=== PATIENT | male | born 1950 | race Native Hawaiian/Other Pacific Islander ===

== ENCOUNTER 2016-04-01 12:28 | Inpatient (IN) | payer MEDICAID ==
[~2016-04-01] VITALS: Ht 162.6 cm; Wt 117.0 kg
[2016-04-01] MEDS: Insulin LISPRO 300 Unit/3 mL Inj SUBQ SCH (00:13)
[2016-04-01 12:48] VITALS: BP 101/65; PULSE 94; RESP 26; O2SAT 90
[2016-04-01 13:36] LABS: EOSINOPHILS % (AUTO) 0 % (0-5); Mean Corpuscular Volume 76.8 fL (81-100); Platelet Count 190 bil/L (150-400)
--- NOTE | 2016-04-01 14:12 | DRSVH ---
PROCEDURE: X-RAY CHEST, TWO VIEWS ([id number]) INDICATIONS: SOB LL chest pain w/ deep breaths TECHNIQUE: 2 views of the chest were acquired. COMPARISON: None. FINDINGS: Surgical changes and devices: None. Lungs and pleura: No pleural effusions or pneumothorax. Lungs are abnormal with what likely is neurosurgical nurse zayda elevation of the right hemidiaphragm and there is alveolar infiltration at the left lower lobe po steriorly.. Mediastinum: Mediastinal contours are normal. Heart size is normal. Bones and chest wall: No suspicious bony abnormalities. Soft tissues appear unremarkable. IMPRESSION: Left lower lobe pneumonia, chronic appearing mild elevation of the right hemidiaphragm. Dictated by: Hal Cornejo M.D. on 04/01/2016 at 14:10 Approved by: Hal Cornejo M.D. on 04/01/2016 at 14:10
[2016-04-01 14:32] LABS: Magnesium 1.7 mg/dL (1.6-2.6)
[2016-04-01 15:22] LABS: BASOPHILS % (AUTO) 0 % (0-3); MONOCYTES % (AUTO) 4 % (4-12); NEUTROPHILS % (AUTO) 93 % (40-74)
--- NOTE | 2016-04-01 15:58 | ED.REPORT ---
HPI-General Illness Date of Service Apr 01, 2016 ED Provider: Dr. Ayon Pt is a 65 year old male with DM problems, presenting to the ED complaining of a cough and SOB onset 4 days ago. The family also reports dizziness, left lower chest pain when coughing, body aches, diarrhea, decreased appetite and weakness. Denies vomiting. 1000mg metformin twice a day is the pt's only medication. [place] speaker, family interperets. Nursing Notes Stated Complaint: DIZZY/SOB Chief Complaint: Respiratory Distress Nursing Notes Reviewed: Yes Allergies: Coded Allergies: aspirin (Verified Allergy, Severe, 04/01/16) swelling around the eyes General Time Seen by MD: 15:58 Chief Complaint Cough, Other (SOB) Hx Obtained From: Patient, Daughter Arrived By: Walk-in Sudden in Onset?: No Onset Occurred: 4 days ago Symptom Duration: Since onset Quality: Painful Severity: Current: Mild Severity: Maximum: Moderate Recent Healthcare: No recent doctor visit, No recent hospitalization Similar Sx Previous: No Past Medical History Past Medical History Notes: [facility] [place] Past Medical History DM Reported admitted to [facility] last year for an eye problem. Past Surgical History denies Smoking History Never Smoker Social History Alcohol Use: Denies alcohol use Ambulatory Status Wheelchair Review of Systems Full Review of Systems Respiratory: Reports: Non-productive cough, Shortness of breath Cardiovascular: Reports: Chest pain GI: Reports: Diarrhea, Denies: Nausea, Vomiting Neurologic: Reports: Dizziness, Weakness Complete sys rev & neg: except as marked. Physical Exam Vital Signs Vital Signs Date Time Temp Pulse Resp B/P Pulse Ox O2 Delivery O2 Flow Rate FiO2 04/01/16 19:22 91 21 137/79 88 Room Air 04/01/16 18:21 92 23 92 Nasal Cannula 1 04/01/16 17:19 93 26 113/61 99 Nasal Cannula 4 04/01/16 12:48 37.1 94 26 101/65 90 Initial VS: Reviewed Neck: Full range of motion Cardiovascular: Regular rate & rhythm, Heart sounds normal, Intact distal pulses Abdomen / GI: No distention Back: No CVA tenderness Skin: Warm, Dry Neurologic: Alert, Oriented, Nonfocal Psychiatric: Mood/affect normal, Behavior normal, Normal thought content General/Constitutional: Cooperative Somnolent but arousable. ENT: Airway patent, Pharynx NL Mouth: Positive: Mucous membranes dry Respiratory / Chest: Breath sounds = bilat Poor air movement. Diffuse wheeze. Interpretation & Diagnostics Interpretation & Diagnostics: ABG: pH:7.325 pCO2:45 pO2:71.0 cHCO3:22.9 cBase:-2.7 Lab Results Interpretation Result Diagram: 04/01/16 1325 04/01/16 1325 Test 04/01/16 13:25 04/01/16 16:05 04/01/16 16:12 04/01/16 19:17 White Blood Count 33.8th/mm3 (3.8-10.1) Red Blood Count 5.69mil/mm3 (4.40-5.80) Hemoglobin 14.2g/dL (13.8-17.2) Hematocrit 43.7% (41.0-50.0) Mean Corpuscular Volume 76.8fL (81-100) Mean Corpuscular Hemoglobin 25.0pg (27.0-35.0) Mean Corpuscular Hemoglobin Concent 32.5% (32.0-37.0) Red Cell Distribution Width 13.3% (12.3-15.4) Platelet Count 190bil/L (150-400) Neutrophils (%) (Auto) 93% (40-74) Lymphocytes (%) (Auto) 3% (14-46) Monocytes (%) (Auto) 4% (4-12) Eosinophils (%) (Auto) 0% (0-5) Basophils (%) (Auto) 0% (0-3) Sodium Level 125mEq/L (134-144) Potassium Level 5.2mEq/L (3.5-5.2) Chloride Level 85mEq/L (97-108) Carbon Dioxide Level 20mmol/L (18-29) Blood Urea Nitrogen 75mg/dL (8-27) Creatinine 2.59mg/dL (0.76-1.27) Estimat Glomerular Filtration Rate 26mL/min (>59) Glucose Level 440mg/dL (60-99) Calcium Level 8.3mg/dL (8.5-10.1) Magnesium Level 1.7mg/dL (1.6-2.6) Total Bilirubin 1.3mg/dL (0.0-1.2) Aspartate Amino Transf (AST/SGOT) 35U/L (0-50) Alanine Aminotransferase (ALT/SGPT) 28U/L (0-44) Alkaline Phosphatase 176U/L (25-160) Total Protein 7.0g/dL (6.4-8.4) Albumin 2.9g/dL (3.4-5.0) Hold Urine Received (Received) Hold Purple Top Tube Received (Received) Hold Blue Top Tube Received (Received) Hold Red Top Tube Received (Received) Hold [place] Top Tube Received (Received) Lactic Acid Level 1.6mmol/L (0.4-2.0) X-Ray Chest Interpretation Chest Xray Interpretation: IMPRESSION: Left lower lobe pneumonia, chronic appearing mild elevation of the right hemidiaphragm. Dictated by: Hal Cornejo M.D. on 04/01/2016 at 14:10 View: AP & lat Interpretation / Wet Read by: Interpret - Radiologist Re-Eval/Medical Decision Med Decision/Clinical Course 65-year-old male presenting with a respiratory illness, left lower lobe infiltrate and marked leukocytosis. Lactate is also elevated. He is not hypotensive. His only mildly acidotic on arterial blood gas and does not appear to be retaining CO2 significantly. No diabetes which is presently uncontrolled and renal failure of unknown duration. He has been cultured up with her Rocephin and azithromycin and given 2 L of saline IV as well as a DuoNeb and Solu-Medrol 125 mg. Admitted to the hospitalist service. Time of Eval: 17:40 Patient Status: Condition improved Re-Evaluation/Progress Note: Discussed supplemental history with the pt's family. Consultation : Referral / Consult Name: Tobi Beebe MD Consulted With: Hospitalist Call Returned at: 18:12 Manager Agency: Will see patient, Agrees with plan, Accepts admit Counseled Regarding: Diagnosis, Lab results, Need for follow-up, When/why to return to ED Discharge & Departure Primary Impression: Pneumonia Pneumonia type: due to unspecified organism Laterality: left Lung location : lower lobe of lung Qualified Code: J18.9 - Pneumonia, unspecified organism Additional Impressions: Sepsis Sepsis type: sepsis due to unspecified organism Qualified Code: A41.9 - Sepsis, unspecified organism Type II diabetes mellitus, uncontrolled Renal failure Disposition: ADMITTED TO HOSPITAL Discharge Condition All VS Reviewed: Yes Condition: Improved Referrals: NOPCP (PCP) [facility] Scribe Attestation Portions of this note were transcribed by Bre Haywood. I, Dr. Ayon personally performed the history, physical exam and medical decision-making; I reviewed and confirmed the accuracy of the information in the transcribed note. Signed by : Stephanie Jean Baptiste, 04/01/16 and 1831. copies to: [facility] Zack Ayon MD Apr 01, 2016 15:58 BRE HAYWOOD Apr 01, 2016 16:19
[2016-04-01] MEDS ORDERED: 0.9% Sodium Chloride 1,000 ML IV ONE ×2 (16:00→17:25)
[2016-04-01] MEDS ORDERED: cefTRIAXone Inj 2,000 MG in IV Premix 1 EACH IV ONE (16:00)
[2016-04-01] MEDS ORDERED: Azithromycin Inj 500 MG in Dextrose 5% w/Vial Mate 250 ML IV ONE (16:00)
[2016-04-01 17:19] VITALS: BP 113/61; PULSE 93; RESP 26; O2SAT 99
[2016-04-01] MEDS ORDERED: MethylprednisoLONE Sodium Succinate 62.5 mg/mL 2 mL Inj IVPUSH ONE (17:45)
[2016-04-01] MEDS ORDERED: Albuterol-Ipratropium 3 mL Inhalation Solution NEB ONE (17:45)
--- NOTE | 2016-04-01 18:07 | ABG ---
DateTimeAnalyzed 18:02:00 -_ pH ____7.325 - 7.350 7.450 pCO2 ___45.3__ -mmHg 35.0 45.0 pO2 ___71.0__ -mmHg 69.0 116 HCO3- ___22.9__ -mmol/L 22.0 26.0 ABE ___-2.7__ -mmol/L -2.0 2.0 tHb ___12.9__ -g/dL O2Hb ___91.6__ -% COHb ____1.0__ -% MetHb ____1.0__ -% sO2 ___93.5__ -% 25.0 FIO2 ___24.0__ -% Drawn By [facility] - Date/Time Notified____ 18:07:00 -_ Oxygen Device 1 __CANNULA - Notified By [facility] - Notified Whom Slack, Don - B 747 -mmHg tO2 ___16.7__ -Vol% Erik test _Positive -
[2016-04-01 18:21] VITALS: PULSE 92; RESP 23; O2SAT 92
[2016-04-01] MEDS: 0.9% Sodium Chloride 1,000 ML IV SCH ×2 (18:28→19:23)
[2016-04-01] MEDS ORDERED: Alum-Mag Hydrox-Simeth 30 mL Suspension PO PRN (18:30)
[2016-04-01] MEDS ORDERED: Ondansetron 2 mg/mL 2 mL Inj IVPUSH PRN (18:30)
[2016-04-01 19:22] VITALS: BP 137/79; PULSE 91; RESP 21; O2SAT 88
[2016-04-01] MEDS ORDERED: Albuterol-Ipratropium 3 mL Inhalation Solution NEB PRN (19:25)
--- NOTE | 2016-04-01 19:29 | PCM.HPMED ---
Subjective Date of Service Apr 01, 2016 Primary Provider: Admitting Physician: Primary Care Physician: Rommel Attending Physician: Chief Complaint: Short of breath HISTORY was OBTAINED FROM and family members / [facility] NOTES History of present illness 65-year-old male with shortness of breath 3 days, associated yellow productive cough, fevers, left chest pain with cough. + sick contact. never inhaler use. no prior pneumonia. In the ER, status post Solu-Medrol Rocephin and azithromycin nebulizers Review of Systems - none of the following - wt change/ DUGAN / lightheaded / dizziness / n/v/diarrhea / bleeding/bruising / leg swelling / change in voiding / yeast infections / rash FAMILY HX grandson with URI prior to patient SOCIAL HX from [facility] originally, distant smoking MEDICATIONS metformin Past Medical/Surgical HX diabetes, eye injury Allergies Coded Allergies: aspirin (Verified Allergy, Severe, 04/01/16) swelling around the eyes PMH Social History Smoking Status: Never Smoker Exam Vital Signs Vital Sign - Last Date Time Temp Pulse Resp B/P Pulse Ox O2 Delivery O2 Flow Rate FiO2 04/01/16 19:22 91 21 137/79 88 Room Air 04/01/16 18:21 1 04/01/16 12:48 37.1 Lab and Diagnostics Labs Exam on admission off O2 90% NAD A and fatigued mood affect WNL NC/AT no icterus no injected eyes EOMI PERRL /no pharyngeal lesions/ no oral lesions / hearing intact Supple neck CTAB diminished w/ expiratory wheeze bilateral equal chest rise / no accessory muscle use / speaks in phrases to in [place] language / no rrw RRR S1 S2 / no mrg / 2+ radial pulses Soft nt nd + BS no hepatosplenomegaly mild bilatearl valentine edema no cyanosis no ecchymosis of lower extremities No rash / no jaundice JEROME incontinent of urine helping to change his clothes EKG QTC CXR left lower lobe pneumonia UA pending LFT bilirubin 1.3, elevated alkaline phosphatase Trop lactic acid mildly elevated procalcitonin pending Result Diagram: 04/01/16 1325 04/01/16 1325 Assessment & Plan Active issues and reason for admission Left lower lobe pneumonia, community-acquired, associated lactic acidosis/ leukocytosis/tachypnea/hypoxia -- Rocephin and azithromycin DuoNeb's, Solu-Medrol AK I, likely prerenal, associated hyponatremia in the setting of pneumonia -- IV fluid Elevated bilirubin, elevated alkaline phosphatase -- Pending repeat bilirubin -- Alkaline phosphatase likely nonspecific Chronic issues known prior to admission, present on admission Diabetes mellitus, hyperglycemic without ketoacidosis -- Sliding scale insulin and hold metformin Diet diabetic DVT prophylaxis lovenox heparin scd ambulate Code full Disposition inpatient status Assessment and plan were discussed with patient family. Tobi Beebe MD Apr 01, 2016 19:29
[2016-04-01] MEDS ORDERED: Glucose 40% Oral Gel 15 Gm Tube PO PRN (19:35)
[2016-04-01] MEDS: Albuterol 2.5 mg/3 mL Inhalation Solution NEB SCH ×2 (20:25→23:50)
[2016-04-01 20:26] VITALS: PULSE 85; RESP 20; O2SAT 90
[2016-04-01 23:50] VITALS: PULSE 61; RESP 20; O2SAT 95
[2016-04-02] VITALS (10 sets, daily range): BP systolic 106–129; BP diastolic 52–67; PULSE 72–96; RESP 16–24; O2SAT 88–97
[2016-04-02] MEDS: Heparin 5,000 Unit/mL Inj SUBQ SCH ×4 (00:14→23:36)
[2016-04-02] MEDS: MethylprednisoLONE Sodium Succinate 62.5 mg/mL 2 mL Inj IVPUSH SCH ×3 (00:14→18:05)
[2016-04-02 02:51] LABS: TROPONIN T 0.01 ug/L (0.0-0.011)
[2016-04-02] MEDS: Albuterol 2.5 mg/3 mL Inhalation Solution NEB SCH ×4 (03:59→21:21)
--- NOTE | 2016-04-02 05:28 | NUR ---
Mentation Pt somnolent throughout the shift. Arousable to voice and touch. Family states he "is ok." Frequent care checks performed.
[2016-04-02] MEDS: 0.9% Sodium Chloride 1,000 ML IV SCH ×6 (06:31→23:36)
--- NOTE | 2016-04-02 08:30 | PCM.PNMED ---
Subjective Date of Service Apr 02, 2016 Subjective No overnight events, vitals stable. No new complaints today. Denies any SOB. Although admits that he cannot take a full breath. Exam Vital Signs Vital Sign - Last Date Time Temp Pulse Resp B/P Pulse Ox O2 Delivery O2 Flow Rate FiO2 04/02/16 06:19 36.8 88 19 112/54 88 Room Air 04/02/16 00:15 1 Intake and Output 04/01/16 04/01/16 04/02/16 Cumulative From/Thru 15:00 23:00 07:00 04/01/16 12:48 - 04/02/16 06:53 Intake Total 2000 ml 1213 ml 3213 ml Output Total 350 ml 350 ml Balance 2000 ml 863 ml 2863 ml Intake Oral 260 ml 260 ml IV Total 2000 ml 953 ml 2953 ml Output Urine Total 350 ml 350 ml # Bowel Movements 0 0 Exam General: No acute distress HEENT: Normocephalic, atraumatic.Pupils equal, round, and reactive to light and accommodation. Anicteric sclerae, moist conjunctivae, and no lid lag. Neck: Supple with full range of motion. No jugular venous distension. No bruits. Cardiovascular: Regular rate and rhythm with no murmurs, rubs, or gallops appreciated Pulmonary: Wheezes throughout, coarse breath L>R, no crackles Abdomen: Bowel tones present. Soft, nontender, nondistended. No hepatosplenomegaly or masses appreciated. Extremities: No clubbing, cyanosis, edema, or lymphadenopathy appreciated. Skin: Normal temperature, turgor, and texture; no rash, ulcers, or subcutaneous nodules appreciated. Neurological: Cranial nerves grossly intact. Normal muscle strength, tone, and bulk. Psychiatric: Normal mood and affect. Alert and oriented to person, place, and time. fatigue IVs and Medications Medications Reviewed: Medications were reviewed in detail Lab and Diagnostics Result Diagram: 04/01/16 1325 04/02/16 0147 X-Rays, CTs and MRIs PROCEDURE: X-RAY CHEST, TWO VIEWS INDICATIONS: SOB LL chest pain w/ deep breaths FINDINGS: Surgical changes and devices: None. Lungs and pleura: No pleural effusions or pneumothorax. Lungs are abnormal with what likely is chronic elevation of the right hemidiaphragm and there is alveolar infiltration at the left lower lobe posteriorly.. Mediastinum: Mediastinal contours are normal. Heart size is normal. Bones and chest wall: No suspicious bony abnormalities. Soft tissues appear unremarkable. IMPRESSION: Left lower lobe pneumonia, chronic appearing mild elevation of the right hemidiaphragm. Dictated by: Hal Cornejo M.D. on 04/01/2016 at 14:10 Assessment & Plan Patient is a 65yom with MHx morbid obese and DM II presented with 4days of flu- like symptoms, found to have LLL infiltrate with leukocytosis, admitted for pneumonia. Severe Sepsis, present on admission, resolved - Leukocytosis wbc 33K and RR 26, lactic acidosis, multiple organ dysfunction, source pneumonia - Fluids and antibiotics given. Lactic acid normalized. Left lower lobe pneumonia, community-acquired, present on admission, active - Rocephin and azithromycin - DuoNeb's, Solu-Medrol taper till 04/05 - Trending procalcitonin Q2days - Infectious disease consulted Acute kidney injury, present on admission, improving - likely prerenal, associated hyponatremia in the setting of pneumonia, - IV fluids - Daily BMP Hypoxic, mildly hypercapnic, present on admission, improving - 2nd to Pneumonia - O2 titrate to above 96% Elevated Liver enzymes, present on admission, resolved - Likely sepsis related Chronic issues known prior to admission, present on admission Diabetes mellitus, hyperglycemic without ketoacidosis - Glucose in the 400's. - Likely 2nd uncontrolled, exacerbate by steroids - Insulin sliding scale. Holding metformin - Will likely start Lantus pending A1C - Diabetic education Disposition: Will likely D/C in 2-3 days pending culture sensitivity and transitioning to oral antibiotics. VTE Prophylaxis: Sub-Q Heparin (Unfractionated) Resuscitation Status: CPR: Attempt Resuscitation Attending Statement The patient was seen and examined together with Dr. Colby Ram on 04/02/2016 and I agree with the history, exam and plan as outlined in the note above. Colby Goodman DO Apr 02, 2016 08:[address] MD Apr 03, 2016 13:46
[2016-04-02 08:47] LABS: EOSINOPHILS % (AUTO) 0 % (0-5); Mean Corpuscular Hemoglobin 24.9 pg (27.0-35.0); Mean Corpuscular Volume 77.5 fL (81-100); Platelet Count 181 bil/L (150-400)
[2016-04-02 09:16] LABS: Magnesium 2.1 mg/dL (1.6-2.6)
[2016-04-02] MEDS: Insulin LISPRO 300 Unit/3 mL Inj SUBQ SCH ×4 (09:38→22:17)
[2016-04-02 10:06] LABS: NEUTROPHILS % (AUTO) 91 % (40-74)
[2016-04-02 10:07] LABS: BASOPHILS % (AUTO) 0 % (0-3); MONOCYTES % (AUTO) 2 % (4-12)
[2016-04-02] MEDS ORDERED: METF1000 PO (12:54)
--- NOTE | 2016-04-02 13:10 | NUR ---
UA/nasal swab sent/report to [facility] RN Ordered UA and nasal swabs for MRSA screen and viral resp panel sent to lab per orders. Pt to be transferred to [facility] room 1004. Report called to [facility] RN Molly Quintero. Pt transferred to [facility] room 1004 in stable condition with all belongings and family at 1309.
--- NOTE | 2016-04-02 13:22 | NUR ---
Transfer Pt transferred from ED to [facility] room 1004 at 1315 via bed. Pt is A&Ox3. JEROME. Family at bedside to translate. Denies pain or SOB. Care Continues. Report taken from Mer[place] MEAD.
[2016-04-02 13:31] LABS: COLOR,URINE YELLOW (YELLOW)
[2016-04-02 13:32] LABS: APPEARANCE,URINE CLEAR (CLEAR,HAZY); OCCULT BLOOD,URINE MODERATE (NEGATIVE); PH,URINE 5.5 (5.0-8.0); UROBILINOGEN,URINE NORMAL (NORMAL)
--- NOTE | 2016-04-02 14:51 | NUR ---
Social Work: Initial Assessment Data: Pt is a 65 y/o male admitted for pneumonia/sepsis. Pt's PCP is not listed, pt's insurance is [employer] Medicaid. EMR reviewed. HOOP MACHINE OPERATOR met with family and pt at bedside, role explained. Pt's family states that he lives with his spouse on the second floor of an apartment. Pt does not have a DPOA and declined information. Pt has no history of HH or SNF, no LTC or VA benefits, and is not a caregiver for another. Pt's family states they can transport him home at d/c if needed. HOOP MACHINE OPERATOR will continue to follow for needs. Assessment: Pt who is independent at baseline. Plan: Pt will either d/c home via POV when medically stable with HH or to SNF. HOOP MACHINE OPERATOR will continue to follow. OSEI Gonsalves Addendum: 04/02/16 at 1454 by NANCY PEREZ Amended: Links added.
[2016-04-02] MEDS: Albuterol-Ipratropium 3 mL Inhalation Solution NEB SCH ×2 (16:00→21:22)
--- NOTE | 2016-04-02 18:30 | NUR ---
BG BG's consistently 300-400's; md notified via cookpaging; awaiting order changes. Pt. given low dose lispro Addendum: 04/02/16 at 1832 by MANNY FERRARO RN 5 units lispro given per low dose algorithm. MD to put in new orders for better blood sugar control.
[2016-04-02] MEDS: cefTRIAXone Inj 2,000 MG in IV Premix 1 EACH IV SCH (19:15)
[2016-04-02] MEDS: Azithromycin Inj 500 MG in Dextrose 5% w/Vial Mate 250 ML IV SCH (20:12)
[2016-04-03] VITALS (13 sets, daily range): BP systolic 107–148; BP diastolic 63–94; PULSE 77–87; RESP 17–18; O2SAT 93–97
[2016-04-03] MEDS: Albuterol 2.5 mg/3 mL Inhalation Solution NEB SCH ×5 (00:30→16:03)
[2016-04-03] MEDS ORDERED: MethylprednisoLONE Sodium Succinate 62.5 mg/mL 2 mL Inj IVPUSH SCH (05:00)
--- NOTE | 2016-04-03 05:58 | NUR ---
Lab/XRAY completed. Pt. slept most of the night. Is able to turn self in bed. Coccyx/ Sacrum w/o open area or redness. Uses urinal and is incontinent at times. at bedside and has been calling for her asst w/ urinal. More awake and alert this am. Continue current care plan.
[2016-04-03] MEDS ORDERED: Insulin GLARgine 100 Unit/mL Syringe SUBQ SCH ×2 (07:40→20:30)
--- NOTE | 2016-04-03 07:44 | PCM.PNMED ---
Subjective Date of Service Apr 03, 2016 Subjective No overnight event. No new complaints. Blood glucose continually high in the 400's. A1C 9.9. Though patient also on steroids. states he had BG up to 300's in the past. Hx of edematous legs. states he has heart disease. Possible CHF. Exam Vital Signs Vital Sign - Last Date Time Temp Pulse Resp B/P Pulse Ox O2 Delivery O2 Flow Rate FiO2 04/03/16 06:02 36.7 82 17 118/66 96 Nasal Cannula 2.00 Intake and Output 04/02/16 04/02/16 04/03/16 Cumulative From/Thru 15:00 23:00 07:00 04/01/16 12:48 - 04/03/16 06:01 Intake Total 331 ml 695 ml 2206 ml 6445 ml Output Total 936 ml 1286 ml Balance 331 ml 695 ml 1270 ml 5159 ml Intake Oral 100 ml 1150 ml 1510 ml IV Total 331 ml 595 ml 1056 ml 4935 ml Output Urine Total 936 ml 1286 ml # Voids 1 1 # Bowel Movements 0 0 0 Exam General: No acute distress, lying flat in bed HEENT: Normocephalic, atraumatic.Pupils equal, round, and reactive to light and accommodation. Anicteric sclerae, moist conjunctivae, and no lid lag. Neck: Supple with full range of motion. No jugular venous distension. No bruits. Cardiovascular: Regular rate and rhythm with no murmurs, rubs, or gallops appreciated Pulmonary: Wheezes throughout, coarse breath L>R,crackles Abdomen: Bowel tones present. Soft, nontender, nondistended. No hepatosplenomegaly or masses appreciated. Extremities: No clubbing, cyanosis, edema, or lymphadenopathy appreciated. Skin: Normal temperature, turgor, and texture; no rash, ulcers, or subcutaneous nodules appreciated. Neurological: Cranial nerves grossly intact. Normal muscle strength, tone, and bulk. Psychiatric: Normal mood and affect. Alert and oriented to person, place, and time. fatigue IVs and Medications Medications Reviewed: Medications were reviewed in detail Lab and Diagnostics Result Diagram: 04/03/16 0530 04/03/16 0530 X-Rays, CTs and MRIs PROCEDURE: X-RAY CHEST, TWO VIEWS INDICATIONS: SOB LL chest pain w/ deep breaths FINDINGS: Surgical changes and devices: None. Lungs and pleura: No pleural effusions or pneumothorax. Lungs are abnormal with what likely is chronic elevation of the right hemidiaphragm and there is alveolar infiltration at the left lower lobe posteriorly.. Mediastinum: Mediastinal contours are normal. Heart size is normal. Bones and chest wall: No suspicious bony abnormalities. Soft tissues appear unremarkable. IMPRESSION: Left lower lobe pneumonia, chronic appearing mild elevation of the right hemidiaphragm. Dictated by: Hal Cornejo M.D. on 04/01/2016 at 14:10 Assessment & Plan Patient is a 65yom with MHx morbid obese and DM II presented with 4days of flu- like symptoms, found to have LLL infiltrate with leukocytosis, admitted for pneumonia. Severe Sepsis, present on admission, resolved - Leukocytosis wbc 33K and RR 26, lactic acidosis, multiple organ dysfunction, source pneumonia - Fluids and antibiotics given. Lactic acid normalized. Left lower lobe pneumonia, community-acquired, present on admission, active - Rocephin and azithromycin - DuoNeb's, Solu-Medrol taper decrease by 50% daily - Trending procalcitonin Q2days - Infectious disease consulted Acute kidney injury, present on admission, improving - likely prerenal, associated hyponatremia in the setting of pneumonia, - IV fluids 100cc/h. Will consider d/c if patient continues to eat and drinks well. - Daily BMP Hypoxic, mildly hypercapnic, present on admission, improving - 2nd to Pneumonia - Nasal canula O2 titrate to above 96% Diabetes mellitus, hyperglycemic without ketoacidosis - Glucose in the 400's. A1C 9.9 - Likely 2nd uncontrolled, exacerbate by steroids - Start Lantus and lispro-sliding scale. Holding metformin - Diabetic education Microcystic anemia, chronicity unknown, active - Hgb trending down, uncertain if this is hemodilution. - Iron panel and stool guaiac pending. - Repeat H&H for afternoon Elevated Liver enzymes, present on admission, resolved - Likely sepsis related Possible Hx Heart failure - b/l crackles of the lower base - Judicious with fluids. - Monitor Disposition: Will likely D/C in 2-3 days pending culture sensitivity and transitioning to oral antibiotics. VTE Prophylaxis: Sub-Q Heparin (Unfractionated) VTE Mechanical Devices: Intermittant Pneumatic CD Resuscitation Status: CPR: Attempt Resuscitation Attending Statement The patient was seen and examined together with Dr. Colby Goodman on 04/03/2016 and I agree with the history, exam and plan as outlined in the note above. Colby Goodman DO Apr 03, 2016 06:[address] MD Apr 04, 2016 14:27
[2016-04-03 08:15] LABS: Unsaturated Iron Binding 108.1 ug/dL
[2016-04-03] MEDS: Insulin LISPRO 300 Unit/3 mL Inj SUBQ SCH ×4 (08:16→21:25)
[2016-04-03] MEDS: Heparin 5,000 Unit/mL Inj SUBQ SCH ×2 (08:18→16:21)
[2016-04-03] MEDS: Albuterol-Ipratropium 3 mL Inhalation Solution NEB SCH ×4 (08:22→21:06)
--- NOTE | 2016-04-03 09:57 | DRSVH ---
PROCEDURE: X-RAY CHEST ONE VIEW, PORTABLE ([id number]) INDICATIONS: pneumonia TECHNIQUE: One view of the chest was acquired. COMPARISON: [facility], CR, XR CHEST 2VW, 04/01/2016, 13:23. FINDINGS: Surgical changes and devices: None. Lungs and pleura: No pleural effusions or pneumothorax. Lungs are abnormal, with bibasilar pneumoni a greater on the left than the right in the left lung base pneumonia pattern appears mildly worsened from one day ago. Mediastinum: Mediastinal contours appear normal. Heart size is normal. Bones and chest wall: No suspicious bony lesions. Overlying soft tissues appear unremarkable. IMPRESSION: Left lower lobe retrocardiac pneumonia pattern, possible slight pneumonia right lung base . Dictated by: Hal Cornejo M.D. on 04/03/2016 at 9:55 Approved by: Hal Cornejo M.D. on 04/03/2016 at 9:55
[2016-04-03] MEDS: 0.9% Sodium Chloride 1,000 ML IV SCH ×2 (10:23→21:26)
[2016-04-03] MEDS: MethylprednisoLONE Sodium Succinate 62.5 mg/mL 2 mL Inj IVPUSH SCH ×2 (12:27→21:11)
[2016-04-03] MEDS ORDERED: Glucose 40% Oral Gel 15 Gm Tube PO PRN (13:50)
--- NOTE | 2016-04-03 16:08 | CONS ---
[address] [address] CONSULTATION REPORT PATIENT: SEAN FLETCHER : 1950 MR#: [id number] ADMIT: 04/02/2016 JOB ID: [id number] DATE OF SERVICE: 04/03/2016 INFECTIOUS DISEASE CONSULT: I thank Dr. Goodman for this timely consult. REASON FOR CONSULT: Pneumococcal bacteremia. HISTORY OF THE PRESENT ILLNESS: The patient is a 65-year-old gentleman who immigrated to the [facility] three years ago. On Thursday, which would be Thursday, March 29, he developed the sudden onset of rigors, fevers, chills, left pleuritic chest pain and productive cough. He denies any prior history of pneumonia, though when pressed he states that he may have been treated by the [facility] nurse for several months with multiple medications which suggests maybe he has recently had tuberculosis but, in any event, he said he was well just before the onset of this illness on last Thursday. These symptoms worsened and eventually brought him to the emergency department on April 01 where he was admitted with the diagnosis of probable pneumonia. Subsequent to that time, his blood cultures have grown Strep pneumoniae, and Infectious Disease consultation is requested regarding management of this. The patient states he was in his usual state of reasonably good health up until just prior to the onset of these symptoms. He reports that he suffers from diabetes, which is not always in the best of control but otherwise, he has been feeling quite well up until March 29. He notes that since admission he has improved a bit with the antibiotics and other treatment he has received in the past two days in that his fevers and chills have calmed down quite a bit, though he is still having a productive cough. PAST MEDICAL HISTORY: 1. Diabetes mellitus, with recent hemoglobin A1c around 10. 2. History of treatment for some infectious disease by [facility], and I have placed a call to the [facility] nurse who is looking up this information and will be calling me back shortly about possible treatment for tuberculosis. SOCIAL HISTORY: The patient immig[place] the [place]. He was a cigarette smoker but only as a teenager. He does not drink alcohol. FAMILY HISTORY: Positive for tuberculosis and diabetes. REVIEW OF SYSTEMS: The patient currently has no significant headache or visual change. No sore throat. He complains of a productive cough, left pleuritic chest pain, fevers and chills, which are now moderating. He has some vague upper abdominal pain, he says, which started with the coughing. No nausea, vomiting, or diarrhea. No symptoms. He does have some chronic swelling of his legs. Review of systems a little bit hampered by the translation, which is coming from his daughter, as we were not able to get a [facility] fish roe processor. PHYSICAL EXAMINATION: Reveals an ill gentleman who is not critically ill but does appear to be very tired. He is lying in his bed. Temp 36.4, pulse 82, respiratory rate 18, blood pressure 121/94. He is saturating well on 2 L. Examination of the eyes reveals that he has bilateral conjunctivitis. His nose is normal. Oral cavity with a small amount of thrush in the left pharynx. Tongue is normal. No hairy leukoplakia. Neck without notable adenopathy. Lungs are notable for very classic fine rales encompassing the left base. The right lung is almost clear. A few crackles at the base perhaps. Cardiac tones: Regular rate and rhythm. The patient's abdomen is obese, soft and nontender. Note that his BMI is 43. No suprapubic tenderness. No Vela catheter. He does have some edema of the legs but it is symmetrical and without evidence of cellulitis or skin breakdown. The patient is neurologically intact. No palpable lymphadenopathy. LABORATORIES: Include white count 34,000 with left shift on admission that has declined to 17,000 today. His creatinine 1.31, down from 1.68. His AST and ALT are normal. Alk phos 156. His procalcitonin was 73 on the when he was admitted. It has fallen by about half to 23 now. Urinalysis was without white cells. Serologic studies include urine legionella antigen and pneumococcal antigen interestingly which are negative. Meanwhile, his blood cultures are growing a mucoid-appearing Strep pneumoniae in 2/4 bottles. The susceptibility on this organism is pending. Rapid PCR studies on nasopharyngeal swab negative. IMAGING: Chest x-ray shows left lower lobe infiltrate and possible small infiltrate at the right base as well. IMPRESSION: This patient has a classic story for pneumococcal pneumonia. He was feeling pretty well on March 29 when he developed the abrupt onset of shaking rigors associated with high fever, sudden onset of severe left pleuritic chest pain and cough. This is a textbook description of pneumococcal pneumonia. This is confirmed by the blood cultures and so, we have a definitive diagnosis. As I was dictating this, the [facility] nurse called and said that he had latent tuberculosis, which was completely treated and he finished every dose of the treatment without toxicity. RECOMMENDATIONS: 1. I would continue with ceftriaxone and azithromycin at this point. There was a controversy in the literature about 15 years ago about whether or not the atypical agent, in this case azithromycin, would be additive in terms of treating pneumococcal pneumonia in patients with ceftriaxone susceptible isolates. That controversy has been resolved by additional studies, which showed that only if the person was bacteremic with pneumococcal pneumonia, would the azithromycin being added to the ceftriaxone make a difference. In this case, given that he has positive blood cultures, we should continue the azithromycin for 3-5 days and the ceftriaxone probably for about 5-7 days. 2. If the patient improves rapidly over the next couple of days, we may be to get him out on oral high-dose amoxicillin, assuming his isolate is susceptible, which I suspect. 3. We await the susceptibilities tomorrow. 4. Nothing else need be done with his latent TB, and I would not check QuantiFERON Gold or PPD because they will almost certainly be positive and that would be not useful.
[2016-04-03] MEDS: cefTRIAXone Inj 2,000 MG in IV Premix 1 EACH IV SCH (16:21)
--- NOTE | 2016-04-03 16:50 | NUR ---
Blood Glucose Pt BG sustaining over 400. Made aware by MD that order was changed to higher dosing of lispro. Lispro administered per protocol for BG of 438, will reassess. Ongoing care.
[2016-04-03] MEDS: Azithromycin Inj 500 MG in Dextrose 5% w/Vial Mate 250 ML IV SCH (16:54)
[2016-04-03] MEDS ORDERED: Albuterol 2.5 mg/3 mL Inhalation Solution NEB PRN (18:30)
[2016-04-04] VITALS (9 sets, daily range): BP systolic 118–146; BP diastolic 63–80; PULSE 60–75; RESP 16–19; O2SAT 92–99
[2016-04-04] MEDS: Heparin 5,000 Unit/mL Inj SUBQ SCH ×3 (00:03→17:08)
[2016-04-04] MEDS: Insulin LISPRO 300 Unit/3 mL Inj SUBQ SCH ×6 (02:28→21:09)
[2016-04-04] MEDS ORDERED: Insulin LISPRO 300 Unit/3 mL Inj SUBQ ONE (02:40)
--- NOTE | 2016-04-04 03:26 | NUR ---
Blood Sugar Per at bedside, patient's mentation is better. No c/o pain. Telemetry SR 1 avb in 70s. Blood sugar last night 387. Rechecked BG this am 372 after 13 units of Lantus and 7 units of Lispro. Md made aware. Order to use SSI to cover the am BG 372 noted. Will continue to monitor. Addendum: 04/04/16 at 0619 by TACHO GOODEN RN Rechecked BS this am 344. Cookpaged MD of 2 episode of Vtach. Pt had 11 beats and 9 beats Vtach. Pt was asymptomatic. VSS. Will continue to monitor.
[2016-04-04] MEDS: 0.9% Sodium Chloride 1,000 ML IV SCH ×2 (04:50→17:07)
[2016-04-04 05:14] LABS: Mean Corpuscular Hemoglobin 24.8 pg (27.0-35.0); Mean Corpuscular Volume 78.6 fL (81-100)
--- NOTE | 2016-04-04 07:31 | PCM.PNMED ---
Subjective Date of Service Apr 04, 2016 Subjective No overnight events. No temp, no increase in O2 requirements. Today, patient reports SOB with lying flat. His legs swells with ankle edema. Exam Vital Signs Vital Sign - Last Date Time Temp Pulse Resp B/P Pulse Ox O2 Delivery O2 Flow Rate FiO2 04/04/16 05:32 62 04/04/16 05:30 36.3 124/63 94 Nasal Cannula 2.00 04/04/16 00:02 17 Intake and Output 04/03/16 04/03/16 04/04/16 Cumulative From/Thru 15:00 23:00 07:00 04/01/16 12:48 - 04/04/16 05:30 Intake Total 2045 ml 1647 ml 94543 ml Output Total 1050 ml 2336 ml Balance 2045 ml 597 ml 7801 ml Intake Oral 840 ml 1000 ml 3350 ml IV Total 1205 ml 647 ml 6787 ml Output Urine Total 1050 ml 2336 ml # Voids 4 5 # Bowel Movements 1 1 Exam General: No acute distress, lying at 30 degrees head tilted and on the side HEENT: Normocephalic, atraumatic.Pupils equal, round, and reactive to light and accommodation. Anicteric sclerae, moist conjunctivae, and no lid lag. Neck: Supple with full range of motion. No jugular venous distension. No bruits. Cardiovascular: Regular rate and rhythm with no murmurs, rubs, or gallops appreciated Pulmonary: tachepnic RR 22. Wheezes throughout, coarse breath L>R, crackles extending b/l up 3-4in from base. Abdomen: Bowel tones present. Soft, nontender, nondistended. No hepatosplenomegaly or masses appreciated. Extremities: No clubbing, cyanosis, edema, or lymphadenopathy appreciated. Skin: Normal temperature, turgor, and texture; no rash, ulcers, or subcutaneous nodules appreciated. Neurological: Cranial nerves grossly intact. Normal muscle strength, tone, and bulk. Psychiatric: Normal mood and affect. Alert and oriented to person, place, and time. fatigue Lab and Diagnostics Result Diagram: 04/04/16 0450 04/04/16 0450 X-Rays, CTs and MRIs PROCEDURE: X-RAY CHEST, TWO VIEWS INDICATIONS: SOB LL chest pain w/ deep breaths FINDINGS: Surgical changes and devices: None. Lungs and pleura: No pleural effusions or pneumothorax. Lungs are abnormal with what likely is chronic elevation of the right hemidiaphragm and there is alveolar infiltration at the left lower lobe posteriorly.. Mediastinum: Mediastinal contours are normal. Heart size is normal. Bones and chest wall: No suspicious bony abnormalities. Soft tissues appear unremarkable. IMPRESSION: Left lower lobe pneumonia, chronic appearing mild elevation of the right hemidiaphragm. Dictated by: Hal Cornejo M.D. on 04/01/2016 at 14:10 Assessment & Plan Patient is a 65yom with MHx morbid obese and DM II presented with 4days of flu- like symptoms, found to have LLL infiltrate with leukocytosis, admitted for pneumonia. Severe Sepsis, present on admission, resolved - Leukocytosis wbc 33K and RR 26, lactic acidosis, multiple organ dysfunction, source pneumonia - Fluids and antibiotics given. Lactic acid normalized. Left lower lobe pneumonia, community-acquired, present on admission, improving - Rocephin and azithromycin - DuoNeb's, Solu-Medrol taper decrease by 50% daily - Trending procalcitonin Q2days - Infectious disease Dr. Olivier following. Acute kidney injury, present on admission, improving - likely prerenal, associated hyponatremia in the setting of pneumonia, - IV fluids increase. Will consider d/c if patient continues to eat and drinks well. - Daily BMP Possible Hx Heart failure - b/l crackles of the lower base increased to middle lobe. - Judicious with fluids. - Repeat Crx and BNP trending. May need to back off fluids pending results/ Hypoxic, mildly hypercapnic, present on admission, improving - 2nd to Pneumonia - Nasal canula O2 titrate to above 96% Diabetes mellitus, hyperglycemic without ketoacidosis - Glucose in the 400's. A1C 9.9 - Likely 2nd uncontrolled, exacerbate by steroids - Start Lantus and lispro-sliding scale. Holding metformin - Diabetic education Microcystic anemia, chronicity unknown, active - Hgb trending down, uncertain if this is hemodilution. - Iron panel and stool guaiac pending. - Repeat H&H for afternoon Elevated Liver enzymes, present on admission, resolved - Likely sepsis related Disposition: Will likely D/C in 2-3 days pending culture sensitivity and transitioning to oral antibiotics. VTE Prophylaxis: Sub-Q Heparin (Unfractionated) VTE Mechanical Devices: Intermittant Pneumatic CD Resuscitation Status: CPR: Attempt Resuscitation Attending Statement The patient was seen and examined together with Dr. Colby Goodman on 04/04/2016 and I agree with the history, exam and plan as outlined in the note above. Colby Goodman DO Apr 04, 2016 07:[address] MD Apr 05, 2016 10:30
[2016-04-04] MEDS: Albuterol-Ipratropium 3 mL Inhalation Solution NEB SCH ×4 (08:30→20:51)
[2016-04-04] MEDS: MethylprednisoLONE Sodium Succinate 62.5 mg/mL 2 mL Inj IVPUSH SCH ×2 (09:20→21:02)
[2016-04-04] MEDS: Insulin GLARgine 100 Unit/mL Syringe SUBQ SCH ×2 (09:21→21:10)
--- NOTE | 2016-04-04 11:57 | DRSVH ---
PROCEDURE: X-RAY CHEST ONE VIEW, PORTABLE ([id number]) INDICATIONS: PNEUMONIA; CONGESTIVE HEART FAILURE TECHNIQUE: One view of the chest was acquired. COMPARISON: [facility], CR, XR CHEST 1VW (PORTABLE), 04/03/2016, 5:19. FINDINGS: Surgical changes and devices: None. Lungs and pleura: No pleural effusions or pneumothorax. Scattered bibasilar atelectasis.. Mediastinum: Mediastinal contours appear normal. Heart size is normal. Bones and chest wall: No suspicious bony lesions. Overlying soft tissues appear unremarkable. IMPRESSION: Low lung volumes and scattered bibasilar atelectasis/scarring. Dictated by: Aki Azevedo M.D. on 04/04/2016 at 11:56 Approved by: Aki Azevedo M.D. on 04/04/2016 at 11:56
--- NOTE | 2016-04-04 15:35 | NUR ---
Blood Glucose Pt has had Q 2 hour blood glucose checks today with blood sugars starting at 319, then he received his IV solumedrol and his insulins in the am and his BG went up to 420, blood glucose came back down 2 hours later to 261, will continue to monitor Q2 hours.
--- NOTE | 2016-04-04 15:38 | NUR ---
Social Work Continued Discharge Planning: SW conducted discharge planning update. SW met with patient and family at bedside to discuss discharge plan. Plan is home with support and care. Patient and family states if HHC recommended choice as [facility]. HHC choice list offered and declined. SW provided access to [facility] and advised rep Mohit preemptively. SW to follow to ensure bed bound status upon discharge to determine if HHC needed. Patient states family to assist with needs and to provide additional care and support. EMR notes reflect transition to oral abx. SW to follow. PLAN: Home with and family, via POV with R/o of HHC if needed. SW to follow pending clinical course Adis FRANZ
--- NOTE | 2016-04-04 15:44 | PROG NOTE ---
[address] [address] PROGRESS NOTE PATIENT: SEAN FLETCHER : 1950 MR#: [id number] ADMIT: 04/02/2016 JOB ID: [id number] DATE: 04/04/2016 INFECTIOUS DISEASE FOLLOWUP NOTE: REASON FOR FOLLOWUP: Bacteremic pneumococcal pneumonia. INTERVAL HISTORY: Overnight, the patient has been feeling better. No fevers or chills. Less shortness of breath, and he feels more like himself. No GI symptoms. PHYSICAL EXAMINATION: Reveals a gentleman who has been afebrile since admission, now 36.6 temperature. Pulse 70, respiratory rate 18, blood pressure 146/80, saturating well on 2 L. In no acute distress. Eyes with a bit of conjunctivitis. Oral cavity negative. Lungs with crackles at both bases. Abdomen benign. No new murmurs noted. LABORATORIES: Include white count, which has dropped all the way from 34,000 three days ago to 10,000 today. Platelet count 219,000. His creatinine is 1.31. Procalcitonin was not repeated today. Urine pneumococcal antigen was negative strangely but his blood cultures were positive. The Strep pneumo in the blood was exquisitely sensitive to penicillin. IMAGING: Today's chest x-ray shows bibasilar atelectasis. IMPRESSION: This patient is doing very well with respect to his pneumococcal pneumonia, which started off with textbook symptoms of high fevers, rigors, left pleuritic chest pain and cough. Also note that this patient is now confirmed to have had latent tuberculosis, which was adequately treated two years ago by the [facility]. RECOMMENDATIONS: 1. I would continue with the ceftriaxone and azithromycin to complete another day or so but he could probably reasonably be considered for discharge as early as tomorrow if his white count is stable and his procalcitonin continues to fall. 2. At the time of discharge I would send him out on a gram t.i.d. of amoxicillin to complete a total of seven days of treatment which would go through about April 09. 3. The patient should have a followup chest x-ray and visit with the primary care provider in a couple of weeks to make sure that he is doing well but otherwise, this patient is stable and approaching the point where he might reasonably be discharged. 4. Infectious Disease will go ahead and sign off at this time.
[2016-04-04] MEDS: Azithromycin Inj 500 MG in Dextrose 5% w/Vial Mate 250 ML IV SCH (17:07)
[2016-04-04] MEDS: cefTRIAXone Inj 2,000 MG in IV Premix 1 EACH IV SCH (18:05)
[2016-04-05] VITALS (12 sets, daily range): BP systolic 114–146; BP diastolic 64–74; PULSE 56–66; RESP 16–20; O2SAT 93–100
[2016-04-05] MEDS: Heparin 5,000 Unit/mL Inj SUBQ SCH ×3 (00:50→16:47)
--- NOTE | 2016-04-05 05:41 | NUR ---
Telemetry/BG Pt denies any pain. BG in mid 200s and coverage per SSI. Rechecked BS this am 276. Noc Hospitalist made aware. No order to give Insulin this am. Telemetry SR/SB 50s to 60s.
[2016-04-05 06:06] LABS: EOSINOPHILS % (AUTO) 0 % (0-5); Mean Corpuscular Hemoglobin 25.3 pg (27.0-35.0); Mean Corpuscular Volume 79.2 fL (81-100); Platelet Count 240 bil/L (150-400)
[2016-04-05] MEDS: Albuterol-Ipratropium 3 mL Inhalation Solution NEB SCH ×4 (06:07→19:14)
[2016-04-05 06:25] LABS: Magnesium 1.9 mg/dL (1.6-2.6)
[2016-04-05 06:56] LABS: NEUTROPHILS % (AUTO) 90 % (40-74)
[2016-04-05 06:57] LABS: BASOPHILS % (AUTO) 0 % (0-3); MONOCYTES % (AUTO) 2 % (4-12)
[2016-04-05] MEDS: Insulin LISPRO 300 Unit/3 mL Inj SUBQ SCH ×4 (07:55→21:12)
[2016-04-05] MEDS: Insulin GLARgine 100 Unit/mL Syringe SUBQ SCH ×2 (07:57→21:13)
[2016-04-05] MEDS ORDERED: MethylprednisoLONE Sodium Succinate 62.5 mg/mL 2 mL Inj IVPUSH SCH (08:30)
[2016-04-05] MEDS: 0.9% Sodium Chloride 1,000 ML IV SCH (09:59)
[2016-04-05] MEDS ORDERED: Insulin Human REGular 300 Unit/3 mL Inj IV SCH (10:35)
[2016-04-05] MEDS ORDERED: Insulin Human REGular 300 Unit/3 mL Inj IV ONE (10:50)
--- NOTE | 2016-04-05 13:19 | PCM.PNMED ---
Subjective Date of Service Apr 05, 2016 Subjective reports patient was coughing a lot overnight, but much improved today. Tolerating oral intake. Patient continues to have SOB. Denies CP, fevers or chills. Exam Vital Signs Vital Sign - Last Date Time Temp Pulse Resp B/P Pulse Ox O2 Delivery O2 Flow Rate FiO2 04/05/16 12:02 36.3 58 16 114/74 93 Nasal Cannula 2.00 Intake and Output 04/04/16 04/04/16 04/05/16 Cumulative From/Thru 15:00 23:00 07:00 04/01/16 12:48 - 04/05/16 06:55 Intake Total 2545 ml 1248 ml 83660 ml Output Total 2336 ml Balance 2545 ml 1248 ml 08090 ml Intake Oral 1200 ml 637 ml 5187 ml IV Total 1345 ml 611 ml 9743 ml Output Urine Total 2336 ml # Voids 4 4 13 # Bowel Movements 0 1 Exam GEB: Sitting up on side of bed in NAD HEENT: Normocephalic, atraumatic. EOMI, Anicteric sclerae Neck: Supple Cardiovascular: Regular rate and rhythm with no murmurs, rubs, or gallops appreciated Pulmonary: Diffused wheezes throughout with bibasilar crackles. No accessory muscles use. Abdomen: Soft, obese, nontender, nondistended. Extremities: No clubbing, cyanosis or edema Psychiatric: Normal mood and affect. Alert and oriented. IVs and Medications Medications Reviewed: Medications were reviewed in detail Lab and Diagnostics Result Diagram: 04/05/16 0544 04/05/16 0544 X-Rays, CTs and MRIs PROCEDURE: X-RAY CHEST, TWO VIEWS INDICATIONS: SOB LL chest pain w/ deep breaths FINDINGS: Surgical changes and devices: None. Lungs and pleura: No pleural effusions or pneumothorax. Lungs are abnormal with what likely is chronic elevation of the right hemidiaphragm and there is alveolar infiltration at the left lower lobe posteriorly.. Mediastinum: Mediastinal contours are normal. Heart size is normal. Bones and chest wall: No suspicious bony abnormalities. Soft tissues appear unremarkable. IMPRESSION: Left lower lobe pneumonia, chronic appearing mild elevation of the right hemidiaphragm. Dictated by: Hal Cornejo M.D. on 04/01/2016 at 14:10 Assessment & Plan Patient is a 65yom with MHx morbid obese and DM II presented with 4days of flu- like symptoms, found to have LLL infiltrate with leukocytosis, admitted for pneumonia. Severe Sepsis, present on admission, resolved - Leukocytosis wbc 33K and RR 26, lactic acidosis, multiple organ dysfunction, source pneumonia - Fluids and antibiotics given. Lactic acid normalized. Left lower lobe pneumonia, community-acquired, present on admission, improving - Rocephin and azithromycin Day#4 - Solu-Medrol discontinued - DuoNebs PRN - Trending procalcitonin trending down - Infectious disease Dr. Olivier consult: appreciate time and expertise. Stop Rocephin and azithromycin after today's dose To be discharged on 1 gram TID of amoxicillin for a total of 7 days Patient to have follow up CXR by PCP in 2 weeks to confirm resolution ID has signed off Acute kidney injury, present on admission. Resolved. - likely prerenal, associated hyponatremia in the setting of pneumonia, - IV fluids increase. Will consider d/c if patient continues to eat and drinks well. - Daily BMP Hyperkalemia, not present on admission. Active - Lasix given with no improvement - Insulin with D50 given - recheck potassium this afternoon Possible Hx Heart failure - b/l crackles of the lower base increased to middle lobe. - Judicious with fluids. - Repeat CXR showed no acute process Hypoxic, mildly hypercapnic, present on admission, improving - 2nd to Pneumonia - Nasal canula O2 titrate to above 96% Diabetes mellitus, hyperglycemic without ketoacidosis - Glucose in the 400's. A1C 9.9 - Likely 2nd uncontrolled, exacerbate by steroids - On Lantus and lispro, high dose sliding scale. Holding metformin - Diabetic education Microcystic anemia, chronicity unknown, improving - Hgb stable - Iron panel normal - stool guaiac pending. Elevated Liver enzymes, present on admission, resolved - Likely sepsis related Disposition: Anticipate discharge tomorrow on PO antibiotics. VTE Prophylaxis: Sub-Q Heparin (Unfractionated) VTE Mechanical Devices: Intermittant Pneumatic CD Resuscitation Status: CPR: Attempt Resuscitation Attending Statement The patient was seen and examined together with Dr. Whelan on 04/05/2016 and I agree with the history, exam and plan as outlined in the note above. Ledy Whelan DO Apr 05, 2016 13:[address] MD Apr 06, 2016 10:46
[2016-04-05] MEDS: cefTRIAXone Inj 2,000 MG in IV Premix 1 EACH IV SCH (16:47)
[2016-04-05] MEDS: Azithromycin Inj 500 MG in Dextrose 5% w/Vial Mate 250 ML IV SCH (17:46)
[2016-04-06] VITALS (10 sets, daily range): BP systolic 116–139; BP diastolic 57–74; PULSE 58–86; RESP 16–20; O2SAT 90–98
[2016-04-06] MEDS: 0.9% Sodium Chloride 1,000 ML IV SCH ×3 (00:24→23:23)
[2016-04-06] MEDS: Heparin 5,000 Unit/mL Inj SUBQ SCH ×3 (00:25→16:57)
--- NOTE | 2016-04-06 05:50 | NUR ---
BG Pt BG in low 300's at HS, family brings lg amts of food and pt and family are feasting in room. Explianed to to avoid all sugary and starchy foods. Difficult to transmit message due to language barrier, however voices understanding.
[2016-04-06 06:15] LABS: Mean Corpuscular Hemoglobin 25.4 pg (27.0-35.0); Mean Corpuscular Volume 80.5 fL (81-100); Platelet Count 251 bil/L (150-400)
[2016-04-06 07:06] LABS: BASOPHILS % (AUTO) 0 % (0-3); EOSINOPHILS % (AUTO) 0 % (0-5); MONOCYTES % (AUTO) 4 % (4-12); NEUTROPHILS % (AUTO) 85 % (40-74)
[2016-04-06] MEDS: Insulin GLARgine 100 Unit/mL Syringe SUBQ SCH ×2 (08:09→21:22)
[2016-04-06] MEDS: Insulin LISPRO 300 Unit/3 mL Inj SUBQ SCH ×4 (08:09→21:50)
[2016-04-06] MEDS: predniSONE 20 mg Tablet PO SCH (08:10)
[2016-04-06] MEDS: Albuterol-Ipratropium 3 mL Inhalation Solution NEB SCH ×4 (08:34→19:32)
--- NOTE | 2016-04-06 09:26 | NUR ---
Social Work: Readiness for Discharge D: Pt discussed with MD. Pt is not yet medically stable for discharge but anticipated to discharge home tomorrow with no sw needs; MD denies need for home health. Pt has been SBA-1PA for ambulation. TEAM FACILITATOR met with pt and at bedside. Pt's communicates with TEAM FACILITATOR and declines need for HH. She would like an RN to educate her on how to check the pt's blood glucose. TEAM FACILITATOR communicated this with bedside RN. A: Pt who declines HH at this time. P: Anticipate pt to discharge home tomorrow with to transport; no sw needs identified at this time. TEAM FACILITATOR to continue to follow OSEI Bobby
--- NOTE | 2016-04-06 10:20 | NUR ---
Ambulate Pt completed one full lap around the unit. Pt held on to IV pole around the unit and swayed slightly side to side while walking. Pt required only SBA assistance to ambulate.
--- NOTE | 2016-04-06 10:55 | PCM.PNMED ---
Subjective Date of Service Apr 06, 2016 Subjective Pt doing well today. He complains of some mild sharp chest pain with deep inspiration. He denies any fever. He states he is feeling much better overall. Pt denies any shortness of breath at present. No other complaints or concerns at this time. Exam Vital Signs Vital Sign - Last Date Time Temp Pulse Resp B/P Pulse Ox O2 Delivery O2 Flow Rate FiO2 04/06/16 10:13 86 04/06/16 08:34 18 95 Room Air 04/06/16 05:12 36.3 123/74 2.00 Intake and Output 04/05/16 04/05/16 04/06/16 Cumulative From/Thru 15:00 23:00 07:00 04/01/16 12:48 - 04/06/16 06:26 Intake Total 1726 ml 1600 ml 13528 ml Output Total 600 ml 600 ml 3536 ml Balance 1126 ml 1000 ml 45557 ml Intake Oral 600 ml 700 ml 6487 ml IV Total 1126 ml 900 ml 06174 ml Output Urine Total 600 ml 600 ml 3536 ml # Voids 5 18 # Bowel Movements 0 1 Exam GENERAL: NAD, Pt laying in bed comfortably HEENT: AT/NC, PERRLA, EOMI, Mucus Membranes are moist CARDIAC: RRR; No M/R/G PULM: Faint crackles at bilateral bases ABD: Soft, Nontender, Nondistended, Positive bowel sounds in all quadrants, No Hepatosplenomegaly appreciated EXT: No C/C/E; No calf tenderness bilaterally SKIN: Warm, Dry, [place], and Intact NEURO: Alert and oriented x3; Following all commands PSYCH: Normal mood and affect IVs and Medications Medications Reviewed: Medications were reviewed in detail Lab and Diagnostics Result Diagram: 04/06/16 0510 04/06/16 0510 X-Rays, CTs and MRIs PROCEDURE: X-RAY CHEST, TWO VIEWS INDICATIONS: SOB LL chest pain w/ deep breaths FINDINGS: Surgical changes and devices: None. Lungs and pleura: No pleural effusions or pneumothorax. Lungs are abnormal with what likely is chronic elevation of the right hemidiaphragm and there is alveolar infiltration at the left lower lobe posteriorly.. Mediastinum: Mediastinal contours are normal. Heart size is normal. Bones and chest wall: No suspicious bony abnormalities. Soft tissues appear unremarkable. IMPRESSION: Left lower lobe pneumonia, chronic appearing mild elevation of the right hemidiaphragm. Dictated by: Hal Cornejo M.D. on 04/01/2016 at 14:10 Assessment & Plan Patient is a 65yom with MHx morbid obese and DM II presented with 4days of flu- like symptoms, found to have LLL infiltrate with leukocytosis, admitted for pneumonia. 1. Sepsis - Present on admission - Resolving - Blood cultures x2 were positive for Strep Pneumoniae - Pt was initially bolused with IV Normal Saline - Continue Normal Saline at 80 mL/hour for now - Initial Procalcitonin was 73 - Repeat Procalcitonin now - WBC count has increased today - Continue IV Rocephin and Azithromycin for today - Monitor closely 2. Community Acquired Pneumonia - Present on admission - Secondary to Strep Pneumoniae - Continue PRN breathing treatments - Continue IV Rocephin and Azithromycin for one more day, then switch to PO Amoxicillin per ID - WBC count is acutely elevated today - Recheck Procalcitonin now - Repeat CBC with diff in AM - Continue supplemental O2 to keep SpO2 greater than 92% - ID was consulted but has since signed off 3. Acute Respiratory Failure with Hypoxemia - Secondary to Pneumonia and Sepsis - Wean O2 aggressively today - Continue PRN breathing treatments 4. Acute Kidney Injury - Resolved with IV Normal Saline - Repeat BMP in AM - Push PO fluids 5. Hyperkalemia - Resolved post D50 and Regular Insulin - Continue telemetry monitoring for now - Repeat BMP in AM 6. Diabetes Mellitus, Type II - Uncontrolled - Hold home Metformin for now - Continue SSI for now - Check FSBS q AC and HS - Pt should probably be on insulin as an outpatient - Blood sugar has been particularly elevated while in hospital as pt was on IV Solu-Medrol 7. Disposition - Anticipate discharge to home in AM without any needs as long as his WBC count does not climb any further and he remains afebrile VTE Prophylaxis: Sub-Q Heparin (Unfractionated) VTE Mechanical Devices: Intermittant Pneumatic CD Resuscitation Status: CPR: Attempt Resuscitation Kiko Lane MD Apr 06, 2016 10:55
[2016-04-06] MEDS: cefTRIAXone Inj 2,000 MG in IV Premix 1 EACH IV SCH (16:57)
--- NOTE | 2016-04-06 17:27 | NUR ---
Ambulated Ambulated around the halls x3 today doing a lap each time. Pt has needed only SBA
[2016-04-06] MEDS: Azithromycin Inj 500 MG in Dextrose 5% w/Vial Mate 250 ML IV SCH (17:33)
[2016-04-07 00:25] VITALS: PULSE 64
[2016-04-07 01:24] VITALS: BP 122/69; PULSE 61; RESP 18; O2SAT 95
[2016-04-07] MEDS: Heparin 5,000 Unit/mL Inj SUBQ SCH ×2 (01:29→08:28)
--- NOTE | 2016-04-07 03:00 | NUR ---
Activity Patient A&OX3 and pleasant this evening. Patient complains of 2/10 intermittent LLQ abd pain. No pain medication needed at this time. Patient dangled at the side of the bed, was able to stand with a steady gait and walked about in the room. IV in left hand is patent and currently infusing NS at 80cc/hr. Last BG check at 0230 was 215. Patient has been using the urinal throughout the shift, and brief is being worn. Patient has been able to get adequate sleep this evening. Will continue to monitor, and continue Q 1 hour care.
[2016-04-07 05:23] VITALS: BP 130/76; PULSE 56; RESP 16; O2SAT 94
[2016-04-07 06:04] LABS: Mean Corpuscular Hemoglobin 24.9 pg (27.0-35.0); Mean Corpuscular Volume 79.7 fL (81-100); Platelet Count 276 bil/L (150-400)
[2016-04-07] MEDS: Albuterol-Ipratropium 3 mL Inhalation Solution NEB SCH ×2 (08:06→12:18)
[2016-04-07 08:08] VITALS: PULSE 70; RESP 18; O2SAT 96
[2016-04-07] MEDS: Insulin GLARgine 100 Unit/mL Syringe SUBQ SCH (08:27)
[2016-04-07] MEDS: predniSONE 20 mg Tablet PO SCH (08:27)
[2016-04-07] MEDS: Insulin LISPRO 300 Unit/3 mL Inj SUBQ SCH ×2 (08:27→12:11)
[2016-04-07 09:16] LABS: BASOPHILS % (AUTO) 0 % (0-3); EOSINOPHILS % (AUTO) 0 % (0-5); MONOCYTES % (AUTO) 3 % (4-12); NEUTROPHILS % (AUTO) 80 % (40-74)
[2016-04-07] MEDS ORDERED: AMOX500T2 PO (10:20)
--- NOTE | 2016-04-07 10:22 | PCM.DIMED ---
Ledy Whelan DO 04/07/16 1022: Discharge Instructions Date of Service Apr 07, 2016 Dates of Hospitalization Apr 02, 2016 at 00:52 Discharge Diagnosis Discharge Diagnosis 1. Sepsis 2. Community Acquired Pneumonia Secondary to Strep Pneumoniae 3. Acute Respiratory Failure with Hypoxemia 4. Acute Kidney Injury 5. Hyperkalemia 6. Diabetes Mellitus, Type II Diet Diabetic Call your provider Fever or Chills, Shortness of breath, Chest pain Patient Instructions Follow-up Provider: Ameena Hernandez MD Follow-up with PCP in: 1 week GoodmanColby gabriel DO 04/07/16 1342: Discharge Instructions Date of Service Apr 07, 2016 Dates of Hospitalization Apr 02, 2016 Activity No restrictions Patient Instructions You were sick and was treated for pneumonia on this admission. You will need to take antibiotics for 4 more days. Take amoxicillin 500mg tablet at 8am, 2pm, and 8pm While you were here, blood work showed uncontrolled diabetes. Uncontrolled blood sugar has numerous bad health outcome. Your A1c,which measures the average blood glucose is 9.9. This is high. We thus, placed you on insulin in addition to metformin. Please continue the metformin Please follow the insulin regiment as detailed below. Lantus insulin 15units at 8am and 8pm daily Lispro insulin take 9 units with each breakfast, lunch, and dinner. Breakfast 9 units Lunch 9 units Dinner 9 units Additionally, add these extra units below, based on your blood glucose Blood sugar Mealtime insulin BG 141-199 mg/dl 1 unit BG 200-249 2units BG 250-299 3units BG 300-349 4units BG 350 or more 5units For example, if your blood glucose is measured at 250mg/dl before lunch. 9units + 3units = 12units. This is the amount glucose you give for lunch. Seek care immediately if: * You have a low blood sugar level and it does not improve with treatment. * Your blood sugar level is above 240 mg/dL and does not come down after you take a dose of insulin. * You have ketones. * You have a fever. * You have nausea or are vomiting and cannot keep any food or liquid down. * You have blurred or double vision. * Your breath has a fruity, sweet smell, or your breathing is shallow. * You have symptoms of a low blood sugar level, such as trouble thinking, sweating, or a pounding heartbeat. Contact your healthcare provider if: * Your blood sugar levels are higher than your target goals. * You often have low blood sugar levels. * Your skin is red, dry, warm, or swollen. * You have a wound that does not heal. * You have questions or concerns about your condition or care Maintain a healthy weight: Ask your healthcare provider how much you should weigh. A healthy weight can help you control your diabetes. Ask your provider to help you create a weight loss plan if you are overweight. Together you can set manageable weight loss goals. Follow your meal plan: A dietitian will help you make a meal plan to keep your blood sugar level steady. Do not skip meals. Your blood sugar level may drop too low if you have taken diabetes medicine and do not eat. * Keep track of carbohydrates (sugar and starchy foods). Your blood sugar level can get too high if you eat too many carbohydrates. Your dietitian will help you plan meals and snacks that have the right amount of carbohydrates. * Eat low-fat foods , such as skinless chicken and low-fat milk. * Eat less sodium (salt). Limit high-sodium foods, such as soy sauce, potato chips, and soup. Do not add salt to food you cook. Limit your use of table salt. * Eat high-fiber foods , such as vegetables, whole-grain breads, and beans. * Limit alcohol. Alcohol affects your blood sugar level and can make it harder to manage your diabetes. Limit alcohol to 1 drink a day if you are a woman. Limit alcohol to 2 drinks a day if you are a man. A drink of alcohol is 12 ounces of beer, 5 ounces of wine, or 1 ounces of liquor. Exercise as directed: Exercise can help keep your blood sugar level steady, decrease your risk of heart disease, and help you lose weight. Exercise for at least 30 minutes, 5 days a week. Work with your healthcare provider to create an exercise plan. * Check your blood sugar level before and after exercise. Healthcare providers may tell you to change the amount of insulin you take or food you eat. If your blood sugar level is high, check your blood or urine for ketones before you exercise. Do not exercise if your blood sugar level is high and you have ketones. * If your blood sugar level is less than 100 mg/dL, have a carbohydrate snack before you exercise. Examples are 4 to 6 crackers, banana, 8 ounces (1 cup) of milk, or 4 ounces ( cup) of juice. Drink water or liquids that do not contain sugar before, during, and after exercise. Ask your dietitian or healthcare provider which liquids you should drink when you exercise. * Do not sit for longer than 90 minutes. If you cannot walk around, at least stand up. This will help you stay active and keep your blood circulating. Do not smoke: Nicotine and other chemicals in cigarettes and cigars can cause lung damage and make it more difficult to manage your diabetes. Ask your healthcare provider for information if you currently smoke and need help to quit. E-cigarettes or smokeless tobacco still contain nicotine. Talk to your healthcare provider before you use these products. Ask about vaccines: You have a higher risk for serious illness if you get the flu, pneumonia, or hepatitis. Ask your healthcare provider if you should get a flu, pneumonia, or hepatitis B vaccine, and when to get the vaccine. Follow-up with PCP in: 1 week Jose Ribera DO 04/07/16 1646: Discharge Instructions Attending's Statement Read and agree Ledy Whelan DO Apr 07, 2016 10:22 Colby Goodman DO Apr 07, 2016 13:42 Jose Ribera DO Apr 07, 2016 16:46
--- NOTE | 2016-04-07 10:29 | PCM.DC.MED ---
Discharge Summary Date of Service Apr 07, 2016 Dates of Hospitalization Date of Hospital Admission Apr 02, 2016 at 00:52 Date of Discharge: Apr 07, 2016 Providers: Admitting Physician: Yi Watson MD Primary Care Physician: Nopshey Attending Physician: Yi Watson MD Diagnosis at Time of Discharge Diagnosis at Time of Discharge 1. Sepsis 2. Community Acquired Pneumonia Secondary to Strep Pneumoniae 3. Acute Respiratory Failure with Hypoxemia 4. Acute Kidney Injury 5. Hyperkalemia 6. Diabetes Mellitus, Type II Consultations ID - Kostas Olivier MD Procedures XRay, CTs & MRIs PROCEDURE: X-RAY CHEST, TWO VIEWS INDICATIONS: SOB LL chest pain w/ deep breaths IMPRESSION: Left lower lobe pneumonia, chronic appearing mild elevation of the right hemidiaphragm. Dictated by: Hal Cornejo M.D. on 04/01/2016 at 14:10 Date of Service: 04/03/16 0600 PROCEDURE: X-RAY CHEST ONE VIEW, PORTABLE ([id number]) IMPRESSION: Left lower lobe retrocardiac pneumonia pattern, possible slight pneumonia right lung base. Dictated by: Hal Cornejo M.D. on 04/03/2016 at 9:55 Date of Service: 04/04/16 0721 PROCEDURE: X-RAY CHEST ONE VIEW, PORTABLE ([id number]) INDICATIONS: PNEUMONIA; CONGESTIVE HEART FAILURE IMPRESSION: Low lung volumes and scattered bibasilar atelectasis/scarring. Dictated by: Aki Azevedo M.D. on 04/04/2016 at 11:56 Brief History Patient is a 65-year-old male with shortness of breath 3 days, associated yellow productive cough, fevers, left chest pain with cough. + sick contact. never inhaler use. no prior pneumonia. In the ER, status post Solu-Medrol Rocephin and azithromycin nebulizers Hospital Course Patient is a 65yom with MHx morbid obese and DM II presented with 4days of flu- like symptoms, found to have LLL infiltrate with leukocytosis, admitted for pneumonia. 1. Sepsis - Present on admission - Resolving - Blood cultures x2 were positive for Strep Pneumoniae - Pt was initially bolused with IV Normal Saline - Continue Normal Saline at 80 mL/hour for now - Initial Procalcitonin was 73 - Repeat Procalcitonin now - WBC count has increased today - Continue IV Rocephin and Azithromycin for today - Monitor closely 2. Community Acquired Pneumonia - Present on admission - Secondary to Strep Pneumoniae - Continue PRN breathing treatments - Continue IV Rocephin and Azithromycin for one more day, then switch to PO Amoxicillin per ID - WBC count is acutely elevated today - Recheck Procalcitonin now - Repeat CBC with diff in AM - Continue supplemental O2 to keep SpO2 greater than 92% - ID was consulted but has since signed off 3. Acute Respiratory Failure with Hypoxemia - Secondary to Pneumonia and Sepsis - Wean O2 aggressively today - Continue PRN breathing treatments 4. Acute Kidney Injury - Resolved with IV Normal Saline - Repeat BMP in AM - Push PO fluids 5. Hyperkalemia - Resolved post D50 and Regular Insulin - Continue telemetry monitoring for now - Repeat BMP in AM 6. Diabetes Mellitus, Type II - Uncontrolled - Hold home Metformin for now - Continue SSI for now - Check FSBS q AC and HS - Pt should probably be on insulin as an outpatient - Blood sugar has been particularly elevated while in hospital as pt was on IV Solu-Medrol 7. Disposition - Anticipate discharge to home in AM without any needs as long as his WBC count does not climb any further and he remains afebrile Exam Vital Signs (Last) Date Time Temp Pulse Resp B/P Pulse Ox O2 Delivery O2 Flow Rate FiO2 04/07/16 08:08 70 18 96 Room Air 04/07/16 05:23 36.6 130/76 04/06/16 05:12 2.00 Test 04/01/16 16:12 04/01/16 19:17 04/02/16 01:47 04/02/16 08:30 Hold Purple Top Tube Received (Received) Hold Blue Top Tube Received (Received) Hold Red Top Tube Received (Received) Hold [place] Top Tube Received (Received) Lactic Acid Level 1.6mmol/L (0.4-2.0) Hemoglobin A1c 9.9% (4.8-5.6) Troponin T 0.010ug/L (0.0-0.011) Total Bilirubin 0.7mg/dL (0.0-1.2) Aspartate Amino Transf (AST/SGOT) 31U/L (0-50) Alanine Aminotransferase (ALT/SGPT) 24U/L (0-44) Alkaline Phosphatase 156U/L (25-160) Total Protein 6.1g/dL (6.4-8.4) Albumin 2.4g/dL (3.4-5.0) Test 04/02/16 12:48 04/03/16 07:51 04/04/16 04:50 04/05/16 05:44 Urine Color Yellow (YELLOW) Urine Appearance Clear (CLEAR,HAZY) Urine pH 5.5 (5.0-8.0) Urine Specific [place] 1.020 (1.003-1.035) Urine Protein Tracemg/dL (NEG,TRACE) Urine Glucose (UA) 1000mg/dL (NEGATIVE) Urine Ketones Tracemg/dL (NEGATIVE) Urine Occult Blood Moderate (NEGATIVE) Urine Nitrite Negative (NEGATIVE) Urine Bilirubin Negative (NEGATIVE) Urine Urobilinogen Normalmg/dL (NORMAL) Urine Leukocyte Esterase Negative (NEGATIVE) Urine RBC 0-2/hpf (0-2) Urine WBC 0-5/hpf (0-5) Urine Epithelial Cells Occasional/hpf (NONE-MOD) Urine Crystals None seen (NONE SEEN) Urine Bacteria Few/hpf (NONE-FEW) Urine Hyaline Casts None/lpf (NONE) Urine Granular Casts Occasional (NONE SEEN) Urine Waxy Casts None seen (NONE SEEN) Urine Red Blood Cell Casts None seen (NONE SEEN) Urine White Blood Cell Casts None seen (NONE SEEN) Urine Mucus None seen (None Seen) Urine Trichomonas None seen (NONE SEEN) Urine Yeast None (NONE SEEN) Urinalysis Comment None Urine Culture Reflexed Not indicated Urine Legionella pneumophilia Ag Negative (Negative) Iron Level 54ug/dL (35-150) Total Iron Binding Capacity 162ug/dL (250-450) Percent Iron Saturation 33%sat (15-50) Unsaturated Iron Binding 108.1ug/dL Pro-B-Type Natriuretic Peptide 1034pg/mL (0-376) Magnesium Level 1.9mg/dL (1.6-2.6) Test 04/06/16 05:10 04/07/16 04:37 Procalcitonin 2.16ng/mL (See Comment) White Blood Count 10.7th/mm3 (3.8-10.1) Red Blood Count 5.23mil/mm3 (4.40-5.80) Hemoglobin 13.0g/dL (13.8-17.2) Hematocrit 41.7% (41.0-50.0) Mean Corpuscular Volume 79.7fL (81-100) Mean Corpuscular Hemoglobin 24.9pg (27.0-35.0) Mean Corpuscular Hemoglobin Concent 31.2% (32.0-37.0) Red Cell Distribution Width 13.8% (12.3-15.4) Platelet Count 276bil/L (150-400) Neutrophils (%) (Auto) 80% (40-74) Lymphocytes (%) (Auto) 10% (14-46) Monocytes (%) (Auto) 3% (4-12) Eosinophils (%) (Auto) 0% (0-5) Basophils (%) (Auto) 0% (0-3) Band Neutrophils % 2% (1-5) Metamyelocytes % 2% (0-0) Myelocytes % 3% (0-0) Sodium Level 138mEq/L (134-144) Potassium Level 4.8mEq/L (3.5-5.2) Chloride Level 101mEq/L (97-108) Carbon Dioxide Level 29mmol/L (18-29) Blood Urea Nitrogen 38mg/dL (8-27) Creatinine 0.84mg/dL (0.76-1.27) Estimat Glomerular Filtration Rate 97mL/min (>59) Glucose Level 220mg/dL (60-99) Calcium Level 8.3mg/dL (8.5-10.1) Discharge Medications Discharge Medications Amoxicillin (Amoxicillin) 500 Mg Tablet 1,000 MG PO TID Prescribed by: LEDY WHELAN DO Insulin Glargine (Lantus U100 Insulin Vial) 100 Unit/Ml Vial 15 UNIT SUBQ BID Lantus 15units, once in the AM and once in the evening Prescribed by: MORTEZA WALKER DO Insulin Human Lispro (HumaLOG U100 Insulin Vial) 100 Unit/Ml Unit 0 UNIT SUBQ WMHS Check blood sugars before meals and at bedtime. Use correction factor only before meals. Blood Sugar Lispro Correction: <151, 0 units; 151-175, 1 unit; 176-200, 2 units; 201-225, 3 units; 226-250, 4 units; 251-275, 5 units; 276-300 , 6 units; 301-325, 7 units; 326-350, 8 units; 351-375, 9 units; 376-400, 10 units; >400, 12 units. Prescribed by: MORTEZA WALKER DO Metformin (Glucophage) 1,000 Mg Tablet 1,000 MG PO BIDWM (Reported) Followup Plan Discharge Diet: Diabetic Follow-up Provider: Ameena Hernandez MD Follow-up with PCP in: 1 week Time spent 45 minutes Attending Statement I have seen and evaluated patient at bedside, in addition to directly supervising care provided by resident physician. I agree with above documentation. Please noted, pt discharged home with prescription for complete course of antibiotic therapy for pulmonary condition Additional recommendations regarding lifestyle changes and recommendation for continued FU made in regards to patients poorly controlled DMII> Ledy Whelan DO Apr 07, 2016 10:28 Jose Ribera DO Apr 07, 2016 15:48
[2016-04-07 10:53] VITALS: PULSE 58
[2016-04-07] MEDS: 0.9% Sodium Chloride 1,000 ML IV SCH (12:06)
[2016-04-07 12:19] VITALS: PULSE 72; RESP 18; O2SAT 93
[2016-04-07] MEDS ORDERED: INSU100V7 SUBQ (13:16)
[2016-04-07] MEDS ORDERED: INSLIS SUBQ (13:16)
--- NOTE | 2016-04-07 14:17 | NUR ---
Social Work Continued Discharge Planning: SW spoke to patient and family at bedside. Order for discharge acknowledged. Plan is home with and family support. Patient and family denied any needs at this time and states family to assist with care needs. No anticipated discharge needs identified at this time. SW to follow. PLAN: Home with and family via POV, pending clinical course Adis FRANZ
--- NOTE | 2016-04-07 15:40 | NUR ---
Discharge Pt left with family in stable condition with all belongings at 1540, IV d/c'd, prescriptions given, extensive diabetic teaching done prior to discharge, information translated through family member, family refused application development intern on a stick. [facility]
--- NOTE | 2016-04-07 19:11 | PCM.DC.MED ---
Discharge Summary Date of Service Apr 07, 2016 Dates of Hospitalization Date of Hospital Admission Apr 02, 2016 at 00:52 Date of Discharge: Apr 07, 2016 Providers: Admitting Physician: Yi Watson MD Primary Care Physician: Nopshey Attending Physician: Yi Watson MD Diagnosis at Time of Discharge Diagnosis at Time of Discharge 1. Sepsis 2. Community Acquired Pneumonia Secondary to Strep Pneumoniae 3. Acute Respiratory Failure with Hypoxemia 4. Acute Kidney Injury 5. Hyperkalemia 6. Diabetes Mellitus, Type II Consultations ID - Kostas Olivier MD Procedures XRay, CTs & MRIs PROCEDURE: X-RAY CHEST, TWO VIEWS INDICATIONS: SOB LL chest pain w/ deep breaths IMPRESSION: Left lower lobe pneumonia, chronic appearing mild elevation of the right hemidiaphragm. Dictated by: Hal Cornejo M.D. on 04/01/2016 at 14:10 Date of Service: 04/03/16 0600 PROCEDURE: X-RAY CHEST ONE VIEW, PORTABLE ([id number]) IMPRESSION: Left lower lobe retrocardiac pneumonia pattern, possible slight pneumonia right lung base. Dictated by: Hal Cornejo M.D. on 04/03/2016 at 9:55 Date of Service: 04/04/16 0721 PROCEDURE: X-RAY CHEST ONE VIEW, PORTABLE ([id number]) INDICATIONS: PNEUMONIA; CONGESTIVE HEART FAILURE IMPRESSION: Low lung volumes and scattered bibasilar atelectasis/scarring. Dictated by: Aki Azevedo M.D. on 04/04/2016 at 11:56 Brief History Patient is a 65-year-old male with shortness of breath 3 days, associated yellow productive cough, fevers, left chest pain with cough. + sick contact. never inhaler use. no prior pneumonia. In the ER, status post Solu-Medrol Rocephin and azithromycin nebulizers Hospital Course Patient is a 65yom [employer] with MHx morbid obese and DM II presented with 4days of flu-like symptoms, found to have LLL infiltrate with leukocytosis , admitted for pneumonia. Community Acquired Pneumonia - Present on admission - Secondary to Strep Pneumoniae, blood culture positive X2 - Rocephin and azithromycin while inpatient and were switch to amoxicillin outpatient - Patient will be taking amoxicillin 500mg TID for another 4 days. - May consider a follow-up CRx in 6wks for resolution Diabetes Mellitus, Type II - Uncontrolled - A1C 9.9. - Patient has received diabetes education. - Restarted metformin - Started patient on Insulin --Lantus 15units BID --Lispro 9units TIDWM --Lispro sliding scale - Will need to follow and titrate Acute Respiratory Failure with Hypoxemia - Secondary to Pneumonia and Sepsis - Resolved Acute Kidney Injury - Fluid hydrate patient - Resolved. Creatinine at discharge is 0.84 Hyperkalemia - Resolved post D50 and Regular Insulin Sepsis - Present on admission, Resolved with fluids and abx. Blood cultures x2 were positive for Strep Pneumoniae Exam Vital Signs (Last) Date Time Temp Pulse Resp B/P Pulse Ox O2 Delivery O2 Flow Rate FiO2 04/07/16 12:19 72 18 93 Room Air 04/07/16 05:23 36.6 130/76 04/06/16 05:12 2.00 Test 04/01/16 16:12 04/01/16 19:17 04/02/16 01:47 04/02/16 08:30 Hold Purple Top Tube Received (Received) Hold Blue Top Tube Received (Received) Hold Red Top Tube Received (Received) Hold [place] Top Tube Received (Received) Lactic Acid Level 1.6mmol/L (0.4-2.0) Hemoglobin A1c 9.9% (4.8-5.6) Troponin T 0.010ug/L (0.0-0.011) Total Bilirubin 0.7mg/dL (0.0-1.2) Aspartate Amino Transf (AST/SGOT) 31U/L (0-50) Alanine Aminotransferase (ALT/SGPT) 24U/L (0-44) Alkaline Phosphatase 156U/L (25-160) Total Protein 6.1g/dL (6.4-8.4) Albumin 2.4g/dL (3.4-5.0) Test 04/02/16 12:48 04/03/16 07:51 04/04/16 04:50 04/05/16 05:44 Urine Color Yellow (YELLOW) Urine Appearance Clear (CLEAR,HAZY) Urine pH 5.5 (5.0-8.0) Urine Specific [place] 1.020 (1.003-1.035) Urine Protein Tracemg/dL (NEG,TRACE) Urine Glucose (UA) 1000mg/dL (NEGATIVE) Urine Ketones Tracemg/dL (NEGATIVE) Urine Occult Blood Moderate (NEGATIVE) Urine Nitrite Negative (NEGATIVE) Urine Bilirubin Negative (NEGATIVE) Urine Urobilinogen Normalmg/dL (NORMAL) Urine Leukocyte Esterase Negative (NEGATIVE) Urine RBC 0-2/hpf (0-2) Urine WBC 0-5/hpf (0-5) Urine Epithelial Cells Occasional/hpf (NONE-MOD) Urine Crystals None seen (NONE SEEN) Urine Bacteria Few/hpf (NONE-FEW) Urine Hyaline Casts None/lpf (NONE) Urine Granular Casts Occasional (NONE SEEN) Urine Waxy Casts None seen (NONE SEEN) Urine Red Blood Cell Casts None seen (NONE SEEN) Urine White Blood Cell Casts None seen (NONE SEEN) Urine Mucus None seen (None Seen) Urine Trichomonas None seen (NONE SEEN) Urine Yeast None (NONE SEEN) Urinalysis Comment None Urine Culture Reflexed Not indicated Urine Legionella pneumophilia Ag Negative (Negative) Iron Level 54ug/dL (35-150) Total Iron Binding Capacity 162ug/dL (250-450) Percent Iron Saturation 33%sat (15-50) Unsaturated Iron Binding 108.1ug/dL Pro-B-Type Natriuretic Peptide 1034pg/mL (0-376) Magnesium Level 1.9mg/dL (1.6-2.6) Test 04/06/16 05:10 04/07/16 04:37 Procalcitonin 2.16ng/mL (See Comment) White Blood Count 10.7th/mm3 (3.8-10.1) Red Blood Count 5.23mil/mm3 (4.40-5.80) Hemoglobin 13.0g/dL (13.8-17.2) Hematocrit 41.7% (41.0-50.0) Mean Corpuscular Volume 79.7fL (81-100) Mean Corpuscular Hemoglobin 24.9pg (27.0-35.0) Mean Corpuscular Hemoglobin Concent 31.2% (32.0-37.0) Red Cell Distribution Width 13.8% (12.3-15.4) Platelet Count 276bil/L (150-400) Neutrophils (%) (Auto) 80% (40-74) Lymphocytes (%) (Auto) 10% (14-46) Monocytes (%) (Auto) 3% (4-12) Eosinophils (%) (Auto) 0% (0-5) Basophils (%) (Auto) 0% (0-3) Band Neutrophils % 2% (1-5) Metamyelocytes % 2% (0-0) Myelocytes % 3% (0-0) Sodium Level 138mEq/L (134-144) Potassium Level 4.8mEq/L (3.5-5.2) Chloride Level 101mEq/L (97-108) Carbon Dioxide Level 29mmol/L (18-29) Blood Urea Nitrogen 38mg/dL (8-27) Creatinine 0.84mg/dL (0.76-1.27) Estimat Glomerular Filtration Rate 97mL/min (>59) Glucose Level 220mg/dL (60-99) Calcium Level 8.3mg/dL (8.5-10.1) Discharge Medications Discharge Medications Amoxicillin (Amoxicillin) 500 Mg Tablet 1,000 MG PO TID Prescribed by: SHAKEEL CRAWLEY DO Insulin Glargine (Lantus U100 Insulin Vial) 100 Unit/Ml Vial 15 UNIT SUBQ BID Lantus 15units, once in the AM and once in the evening Prescribed by: MORTEZA WALKER DO Insulin Human Lispro (HumaLOG U100 Insulin Vial) 100 Unit/Ml Unit 0 UNIT SUBQ WMHS Check blood sugars before meals and at bedtime. Use correction factor only before meals. Blood Sugar Lispro Correction: <151, 0 units; 151-175, 1 unit; 176-200, 2 units; 201-225, 3 units; 226-250, 4 units; 251-275, 5 units; 276-300 , 6 units; 301-325, 7 units; 326-350, 8 units; 351-375, 9 units; 376-400, 10 units; >400, 12 units. Prescribed by: MORTEZA WALKER DO Metformin (Glucophage) 1,000 Mg Tablet 1,000 MG PO BIDWM (Reported) Followup Plan Discharge Diet: Diabetic Discharge Activity: No restrictions Patient Instructions You were sick and was treated for pneumonia on this admission. You will need to take antibiotics for 4 more days. Take amoxicillin 500mg tablet at 8am, 2pm, and 8pm While you were here, blood work showed uncontrolled diabetes. Uncontrolled blood sugar has numerous bad health outcome. Your A1c,which measures the average blood glucose is 9.9. This is high. We thus, placed you on insulin in addition to metformin. Please continue the metformin Please follow the insulin regiment as detailed below. Lantus insulin 15units at 8am and 8pm daily Lispro insulin take 9 units with each breakfast, lunch, and dinner. Breakfast 9 units Lunch 9 units Dinner 9 units Additionally, add these extra units below, based on your blood glucose Blood sugar Mealtime insulin BG 141-199 mg/dl 1 unit BG 200-249 2units BG 250-299 3units BG 300-349 4units BG 350 or more 5units For example, if your blood glucose is measured at 250mg/dl before lunch. 9units + 3units = 12units. This is the amount glucose you give for lunch. Seek care immediately if: * You have a low blood sugar level and it does not improve with treatment. * Your blood sugar level is above 240 mg/dL and does not come down after you take a dose of insulin. * You have ketones. * You have a fever. * You have nausea or are vomiting and cannot keep any food or liquid down. * You have blurred or double vision. * Your breath has a fruity, sweet smell, or your breathing is shallow. * You have symptoms of a low blood sugar level, such as trouble thinking, sweating, or a pounding heartbeat. Contact your healthcare provider if: * Your blood sugar levels are higher than your target goals. * You often have low blood sugar levels. * Your skin is red, dry, warm, or swollen. * You have a wound that does not heal. * You have questions or concerns about your condition or care Maintain a healthy weight: Ask your healthcare provider how much you should weigh. A healthy weight can help you control your diabetes. Ask your provider to help you create a weight loss plan if you are overweight. Together you can set manageable weight loss goals. Follow your meal plan: A dietitian will help you make a meal plan to keep your blood sugar level steady. Do not skip meals. Your blood sugar level may drop too low if you have taken diabetes medicine and do not eat. * Keep track of carbohydrates (sugar and starchy foods). Your blood sugar level can get too high if you eat too many carbohydrates. Your dietitian will help you plan meals and snacks that have the right amount of carbohydrates. * Eat low-fat foods , such as skinless chicken and low-fat milk. * Eat less sodium (salt). Limit high-sodium foods, such as soy sauce, potato chips, and soup. Do not add salt to food you cook. Limit your use of table salt. * Eat high-fiber foods , such as vegetables, whole-grain breads, and beans. * Limit alcohol. Alcohol affects your blood sugar level and can make it harder to manage your diabetes. Limit alcohol to 1 drink a day if you are a woman. Limit alcohol to 2 drinks a day if you are a man. A drink of alcohol is 12 ounces of beer, 5 ounces of wine, or 1 ounces of liquor. Exercise as directed: Exercise can help keep your blood sugar level steady, decrease your risk of heart disease, and help you lose weight. Exercise for at least 30 minutes, 5 days a week. Work with your healthcare provider to create an exercise plan. * Check your blood sugar level before and after exercise. Healthcare providers may tell you to change the amount of insulin you take or food you eat. If your blood sugar level is high, check your blood or urine for ketones before you exercise. Do not exercise if your blood sugar level is high and you have ketones. * If your blood sugar level is less than 100 mg/dL, have a carbohydrate snack before you exercise. Examples are 4 to 6 crackers, banana, 8 ounces (1 cup) of milk, or 4 ounces ( cup) of juice. Drink water or liquids that do not contain sugar before, during, and after exercise. Ask your dietitian or healthcare provider which liquids you should drink when you exercise. * Do not sit for longer than 90 minutes. If you cannot walk around, at least stand up. This will help you stay active and keep your blood circulating. Do not smoke: Nicotine and other chemicals in cigarettes and cigars can cause lung damage and make it more difficult to manage your diabetes. Ask your healthcare provider for information if you currently smoke and need help to quit. E-cigarettes or smokeless tobacco still contain nicotine. Talk to your healthcare provider before you use these products. Ask about vaccines: You have a higher risk for serious illness if you get the flu, pneumonia, or hepatitis. Ask your healthcare provider if you should get a flu, pneumonia, or hepatitis B vaccine, and when to get the vaccine. Follow-up Provider: Ameena Hernandez MD Follow-up with PCP in: 1 week Time spent 40 minutes Attending Statement I have seen and evaluated patient at bedside and directly supervised in the care provided by resident physician. I agree with above documentation. copies to: Ameena Hernandez MD, Phuc H DO Apr 07, 2016 19:11 Jose Ribera DO Apr 08, 2016 13:39
--- NOTE | 2016-04-09 17:00 | NUR ---
Follow up call re DM Attempted to call patient at home. Phone number provided is a friend of patient. She does not live with patient. Patient currently does not have a phone.
== END 2016-04-07 15:40 | disposition home or self-care (01) | DRG 871 ==
LOC: SED 12:28 → OFED 04-02 00:52 → OSC 04-02 12:34
PROVIDERS: ADMIT Specialist; ATTEND Specialist
PROC: 4A033B1 Measurement of Arterial Pressure, Peripheral, Percutaneous Approach (ICD-10-PCS; principal; 2016-04-01)
DX: A40.3 Sepsis due to Streptococcus pneumoniae (principal); J96.01 Acute respiratory failure with hypoxia; N17.9 Acute kidney failure, unspecified; J18.9 Pneumonia, unspecified organism; E87.1 Hypo-osmolality and hyponatremia; Z68.41 Body mass index [BMI] 40.0-44.9, adult; E11.65 Type 2 diabetes mellitus with hyperglycemia; E87.5 Hyperkalemia; E66.01 Morbid (severe) obesity due to excess calories; Z79.4 Long term (current) use of insulin